=== PATIENT | female | born 1975 | race African-American/Black ===

== ENCOUNTER 2023-06-01 23:29 | Inpatient (IN) | payer OTHER ==
[2023-06-02 00:28] LABS: BASO % 0.3 % (0-2.0); EOS % 1.3 % (0-4.5); HEMATOCRIT 36.2 % (32.4-45.2); HEMOGLOBIN 11.9 GM/dL (10.7-15.3); LYMPH % 38.7 % (8-40); MCH 29.6 pg (25.7-33.7); MCHC 32.8 g/dl (32.0-36.0); MEAN CELL VOLUME 90.2 fl (80-96); MEAN PLT VOLUME 6.4 fl (7.5-11.1); MONO % 16.1 % (3.8-10.2); NEUT % 43.6 % (42.8-82.8); PLATELET COUNT 345 10^3/uL (134-434); RBC 4.02 M/mm3 (3.60-5.2); RDW 12.9 % (11.6-15.6); WHITE BLOOD COUNT 6.3 K/mm3 (4.0-10.0)
[2023-06-02] MEDS: SODIUM CHLORIDE 0.9% 500 ML INFUS.BAG IV ONE (00:30)
[2023-06-02 00:41] LABS: POTASSIUM 4.4 mmol/L (3.5-5.1)
[2023-06-02 00:42] LABS: CALCIUM 9.5 mg/dL (8.5-10.1)
[2023-06-02 00:43] LABS: ALBUMIN 3.2 g/dl (3.4-5.0); BLOOD UREA NITROGEN 22.8 mg/dL (7-18); MAGNESIUM 1.6 mg/dL (1.8-2.4)
[2023-06-02 00:46] LABS: INR 1.09 (0.83-1.09); PROTHROMBIN TIME (PATIENT) 12.6 SEC (9.7-13.0)
[2023-06-02 00:47] LABS: CREATININE 0.9 mg/dL (0.55-1.3); TOT PROT 6.7 g/dl (6.4-8.2)
[2023-06-02 00:48] LABS: ACTIVATED PTT 28.9 SECONDS (25.2-36.5); BILIRUBIN,TOTAL 0.4 mg/dL (0.2-1)
[2023-06-02 00:51] LABS: N-TERMINAL BNP 40.5 pg/ml (5-125)
[2023-06-02] MEDS ORDERED: ONDANSETRON 4 MG/2 ML VIAL ONE (01:54)
[2023-06-02] MEDS ORDERED: HYDROCORTISONE SOD SUCCINATE 100 MG/2 ML VIAL ONE (01:58)
[2023-06-02] MEDS ORDERED: MAGNESIUM SULFATE IN WATER 2 GM/50 ML IVPB IVPB ONE (02:19)
[2023-06-02] MEDS: MAGNESIUM SULFATE IN WATER 2 GM/50 ML IVPB IVPB ONE (02:32)
[2023-06-02] MEDS: HYDROCORTISONE SOD SUCCINATE 100 MG/2 ML VIAL IVPB ONE (02:32)
[2023-06-02] MEDS: PROPYLTHIOURACIL 50 MG TABLET (UD) PO ONE ×2 (02:33→06:55)
[2023-06-02] MEDS: ONDANSETRON 4 MG/2 ML VIAL IVPUSH ONE (02:33)
[2023-06-02] MEDS: SODIUM CHLORIDE 0.9% 1000 ML INFUS.BAG IV ONE (02:33)
[2023-06-02 02:44] LABS: EPI CELLS 6 /uL (0-25.1); HYALINE CASTS 0 /uL (0-3.1); URINE APPEARANCE CLEAR; URINE BACTERIA 388 /uL (0-1359); URINE BILIRUBIN NEGATIVE (NEGATIVE); URINE COLOR YELLOW; URINE GLUCOSE (UA) NEGATIVE (NEGATIVE); URINE KETONE TRACE (NEGATIVE); URINE LEUK ESTERASE TRACE (NEGATIVE); URINE NITRITE NEGATIVE (NEGATIVE); URINE PROTEIN NEGATIVE (NEGATIVE); URINE RBC 33 /uL (0-23.9); URINE WBC 13 /uL (0-25.8)
[2023-06-02] MEDS ORDERED: PROPYLTHIOURACIL 50 MG TABLET (UD) PO ONE (04:16)
[2023-06-02 06:41] LABS: INR 1.08 (0.83-1.09); PROTHROMBIN TIME (PATIENT) 12.5 SEC (9.7-13.0)
[2023-06-02 06:44] LABS: ACTIVATED PTT 28.5 SECONDS (25.2-36.5)
[2023-06-02 06:46] LABS: POTASSIUM 4.1 mmol/L (3.5-5.1)
[2023-06-02 06:48] LABS: CALCIUM 8.7 mg/dL (8.5-10.1)
[2023-06-02 06:49] LABS: ALBUMIN 2.7 g/dl (3.4-5.0); BLOOD UREA NITROGEN 18.8 mg/dL (7-18); MAGNESIUM 2.4 mg/dL (1.8-2.4)
[2023-06-02 06:50] VITALS: BMI 29.2
[2023-06-02 06:52] LABS: CREATININE 0.6 mg/dL (0.55-1.3); PHOSPHOROUS 2.7 mg/dL (2.5-4.9)
[2023-06-02 06:53] LABS: TOT PROT 6.1 g/dl (6.4-8.2)
[2023-06-02 06:54] LABS: BILIRUBIN,TOTAL 0.5 mg/dL (0.2-1)
[2023-06-02 06:56] LABS: N-TERMINAL BNP 69.2 pg/ml (5-125)
[2023-06-02 07:35] LABS: BASO % 0.2 % (0-2.0); EOS % 0.2 % (0-4.5); HEMATOCRIT 33.5 % (32.4-45.2); HEMOGLOBIN 10.9 GM/dL (10.7-15.3); LYMPH % 21.3 % (8-40); MCH 29.7 pg (25.7-33.7); MCHC 32.7 g/dl (32.0-36.0); MEAN CELL VOLUME 90.8 fl (80-96); MEAN PLT VOLUME 6.3 fl (7.5-11.1); MONO % 5.1 % (3.8-10.2); NEUT % 73.2 % (42.8-82.8); PLATELET COUNT 305 10^3/uL (134-434); RBC 3.69 M/mm3 (3.60-5.2); RDW 12.6 % (11.6-15.6)
[2023-06-02] MEDS: ENOXAPARIN NA (PORCINE) 40 MG/0.4 ML DISP.SYRIN SQ SCH (09:29)
[2023-06-02] MEDS: PANTOPRAZOLE 40 MG TABLET PO SCH (09:29)
[2023-06-02] MEDS: MUPIROCIN 2% TOPICAL OINTMENT FOR DECOLONIZATION NS SCH (09:31)
[2023-06-02] MEDS: PROPYLTHIOURACIL 50 MG TABLET (UD) PO SCH (15:09)
[2023-06-02 15:12] LABS: PHENCYCLIDINE,URINE NEGATIVE (NEGATIVE)
[2023-06-02] MEDS: ACETAMINOPHEN 325 MG TABLET (FP) PO PRN (15:14)
[2023-06-02 15:31] LABS: URINE BENZODIAZEPINES NEGATIVE (NEGATIVE)
[2023-06-02 15:32] LABS: METHADONE, UR NEGATIVE (NEGATIVE)
[2023-06-02 15:33] LABS: COCAINE, UR NEGATIVE (NEGATIVE); OPIATES, URI NEGATIVE (NEGATIVE)
[2023-06-02 15:34] LABS: URINE BARBITURATES NEGATIVE (NEGATIVE)
[2023-06-02 15:35] LABS: URINE AMPHETAMINES NEGATIVE (NEGATIVE)
[2023-06-02] MEDS: IBUPROFEN 600 MG TABLET (FP) PO PRN (16:55)
[2023-06-02] MEDS ORDERED: CHLORHEXIDINE GLUCONATE 4% CLEANSER FOR DECOLONIZATION TP SCH (22:00)
[2023-06-03 08:35] LABS: BASO % 0.3 % (0-2.0); EOS % 1.5 % (0-4.5); HEMATOCRIT 32.1 % (32.4-45.2); HEMOGLOBIN 10.4 GM/dL (10.7-15.3); LYMPH % 50.9 % (8-40); MCH 29.7 pg (25.7-33.7); MCHC 32.6 g/dl (32.0-36.0); MEAN CELL VOLUME 91.3 fl (80-96); MEAN PLT VOLUME 6.5 fl (7.5-11.1); NEUT % 34.3 % (42.8-82.8); PLATELET COUNT 296 10^3/uL (134-434); RBC 3.51 M/mm3 (3.60-5.2); WHITE BLOOD COUNT 5.4 K/mm3 (4.0-10.0)
[2023-06-03 09:12] LABS: ALBUMIN 2.5 g/dl (3.4-5.0); BLOOD UREA NITROGEN 22.6 mg/dL (7-18); CALCIUM 8.5 mg/dL (8.5-10.1); MAGNESIUM 2.1 mg/dL (1.8-2.4)
[2023-06-03 09:15] LABS: PHOSPHOROUS 4.4 mg/dL (2.5-4.9)
[2023-06-03 09:16] LABS: CREATININE 0.7 mg/dL (0.55-1.3)
[2023-06-03 09:17] LABS: BILIRUBIN,TOTAL 0.4 mg/dL (0.2-1); TOT PROT 5.7 g/dl (6.4-8.2)
[2023-06-03] MEDS: SODIUM CHLORIDE 1,000 ML IV SCH (10:12)
[2023-06-03] MEDS: LACTATED RINGERS SOLUTION 1,000 ML/1,000 ML INFUS.BAG IV SCH (23:22)
[2023-06-04 05:43] VITALS: RESP 18
[2023-06-04] MEDS ORDERED: ACETAMINOPHEN 325 MG TABLET (FP) PO PRN (06:01)
[2023-06-04 09:40] VITALS: BP 122/76; PULSE 107; TEMP 99
[2023-06-04] MEDS: ENOXAPARIN NA (PORCINE) 40 MG/0.4 ML DISP.SYRIN SQ SCH (09:40)
[2023-06-04] MEDS: PANTOPRAZOLE 40 MG TABLET PO SCH (09:40)
[2023-06-04] MEDS: KETOROLAC TROMETHAMINE 30 MG/1 ML VIAL IM ONE (09:41)
[2023-06-04] MEDS: IBUPROFEN 600 MG TABLET (FP) PO ONE (09:41)
[2023-06-04] MEDS ORDERED: PROPYLTHIOURACIL 50 MG TABLET (UD) PO SCH (14:00)
== END 2023-06-04 13:53 | disposition home or self-care (01) | DRG 424 ==
LOC: JER 23:29 → JERBED 06-02 02:34 → JICU 06-02 06:29 → J4W 06-02 20:24
PROVIDERS: ADMIT Internal Medicine Pulmonary Disease; ATTEND Internal Medicine
DX: E05.91 Thyrotoxicosis, unspecified with thyrotoxic crisis or storm (principal); R00.0 Tachycardia, unspecified; R07.89 Other chest pain; G51.0 Bell's palsy; I95.9 Hypotension, unspecified; F41.9 Anxiety disorder, unspecified
CPT/HCPCS: 0241U-QW; 36415; 71045-TC-FY; 71275-TC; 72050-TC-FY; 80053; 80061; 80307; 81003; 82550; 82962; 83036; 83605; 83735; 83835; 83880; 84100; 84436; 84439; 84443; 84445; 84480; 84481; 84484; 84703; 85025; 85610; 85651; 85730; 86140; 86376; 86800; 87086; 93005; 93010; 93306-TC; 94010; 99285-25